=== PATIENT | male | born 1965 | race Two or more races ===

== ENCOUNTER 2019-01-03 16:37 | Emergency (ER) | payer SELFPAY ==
[~2019-01-03] VITALS: Ht 193 cm; Wt 115.7 kg
[2019-01-03] MEDS ORDERED: METFORMIN HCL1000 M1 ORAL (16:49)
--- NOTE | 2019-01-03 16:50 | Emergency Room Report ---
History of Present Illness General Chief Complaint: Chest Pain Source: Patient Present Illness HPI 53-year-old male history of 80 pack years 2 packs/day for 40 years, presents with acute shortness of breath x3 days, chest tightness no aggravating or alleviating factors symptoms are constant, no fever no chills, he endorses a dry cough. Patient presents for evaluation. Allergies: Coded Allergies: No Known Allergies (Unverified , 01/03/19) Patient History Past Medical History: see triage record Social History: Reports: smoking Reviewed Nursing Documentation: PMH: Agreed; PSxH: Agreed Nursing Documentation-PMH Past Medical History: No History, Except For Hx Diabetes: Yes Review of Systems All Other Systems: negative except mentioned in HPI Physical Exam Vital Signs Date Time Temp Pulse Resp B/P (MAP) Pulse Ox O2 Delivery O2 Flow Rate FiO2 01/03/19 16:43 98.1 92 14 105/78 (87) 97 Room Air Sp02 EP Interpretation: reviewed, normal General Appearance: well appearing, no apparent distress, alert Head: normocephalic, atraumatic Eyes: bilateral eye PERRL, bilateral eye EOMI ENT: uvula midline, moist mucus membranes Neck: supple, thyroid normal, supple/symm/no masses Respiratory: accessory muscle use, wheezing - bilateral wheezing moderate Cardiovascular #1: normal peripheral pulses, regular rate, rhythm, no edema, no gallop, no murmur Gastrointestinal: non tender, soft, no guarding, no rebound Musculoskeletal: normal inspection Neurologic: alert, oriented x3 Psychiatric: mood/affect normal Skin: no rash, warm/dry Medical Decision Making Diagnostic Impression: Primary Impression: COPD exacerbation ER Course 53-year-old male presents with acute shortness of breath chest pain has been constant x3 days, on the differential includes ACS pneumonia COPD exacerbation Chest x-ray negative shows large lung volumes EKG negative, troponin negative, patient had wheezing on exam reevaluation at 6: 10 PM, wheezing significantly improved after albuterol and Decadron Disposition home with return precautions, patient already received outpatient steroids, will provide patient with albuterol pump Counseled patient to follow-up with PCP and obtain a stress test as well as pulmonary function testing Laboratory Tests Test 01/03/19 16:55 White Blood Count 13.4 K/UL (4.8-10.8) H Red Blood Count 5.15 M/UL (4.70-6.10) Hemoglobin 16.2 G/DL (14.2-18.0) Hematocrit 44.4 % (42.0-52.0) Mean Corpuscular Volume 86 FL (80-99) Mean Corpuscular Hemoglobin 31.4 PG (27.0-31.0) H Mean Corpuscular Hemoglobin Concent 36.4 G/DL (32.0-36.0) H Red Cell Distribution Width 10.9 % (11.6-14.8) L Platelet Count 212 K/UL (150-450) Mean Platelet Volume 8.5 FL (6.5-10.1) Neutrophils (%) (Auto) 56.0 % (45.0-75.0) Lymphocytes (%) (Auto) 36.3 % (20.0-45.0) Monocytes (%) (Auto) 5.0 % (1.0-10.0) Eosinophils (%) (Auto) 1.3 % (0.0-3.0) Basophils (%) (Auto) 1.3 % (0.0-2.0) Prothrombin Time 9.2 SEC (9.30-11.50) L Prothrombin Time INR 0.9 (0.9-1.1) PTT 26 SEC (23-33) Sodium Level 139 MMOL/L (136-145) Potassium Level 3.7 MMOL/L (3.5-5.1) Chloride Level 103 MMOL/L (98-107) Carbon Dioxide Level 25 MMOL/L (21-32) Anion Gap 11 mmol/L (5-15) Blood Urea Nitrogen 11 mg/dL (7-18) Creatinine 0.8 MG/DL (0.55-1.30) Estimate Glomerular Filtration Rate > 60 mL/min (>60) Glucose Level 223 MG/DL (74-106) H Calcium Level 9.4 MG/DL (8.5-10.1) Total Bilirubin 0.5 MG/DL (0.2-1.0) Aspartate Amino Transferase (AST) 28 U/L (15-37) Alanine Aminotransferase (ALT) 63 U/L (12-78) Alkaline Phosphatase 106 U/L (46-116) Total Creatine Kinase 42 U/L (26-308) Creatine Kinase MB 0.8 NG/ML (0.0-3.6) Creatine Kinase MB Relative Index 1.9 Troponin I 0.000 ng/mL (0.000-0.056) Pro-B-Type Natriuretic Peptide 55 pg/mL (0-125) Total Protein 7.1 G/DL (6.4-8.2) Albumin 3.9 G/DL (3.4-5.0) Globulin 3.2 g/dL Albumin/Globulin Ratio 1.2 (1.0-2.7) Lipase 382 U/L (73-393) EKG Diagnostic Results EKG Time: 16:40 EP Interpretation: NSR, rate 82, QTc 422, no acute ST elevations, normal axis Rate: normal Rhythm: NSR ST Segments: no acute changes Rhythm Strip Diag. Results Rhythm Strip Time: 17:00 EP Interpretation: yes Rate: 81 Rhythm: NSR, no PVC's, no ectopy Chest X-Ray Diagnostic Results Chest X-Ray Diagnostic Results : Chest X-Ray Ordered: Yes # of Views/Limited/Complete: 1 View Indication: Shortness of Breath EP Interpretation: Yes Interpretation: no consolidation, no effusion, no pneumothorax, no acute cardiopulmonary disease Impression: No acute disease Electronically Signed by: Guanakito Hilario MD Last Vital Signs Date Time Temp Pulse Resp B/P (MAP) Pulse Ox O2 Delivery O2 Flow Rate FiO2 01/03/19 16:43 98.1 92 14 105/78 (87) 97 Room Air Disposition: HOME, SELF-CARE Condition: Stable Scripts Albuterol Sulfate* (ALBUTEROL SULFATE MDI*) 8.5 Gm Hfa.aer.ad 2 PUFF INH Q4H PRN for Shortness of Breath, #1 EA 0 Refills Prov: Guanakito Hilario MD 01/03/19 Referrals: [facility] Patient Instructions: Chronic Obstructive Pulmonary Disease Exacerbation Additional Instructions: The patient was provided with discharge instructions, notified to follow-up with a primary care doctor and or specialist in the next 24-48 hours, and to return to the ED if they have worsening of their symptoms. Please note that this report is being documented using [employer] technology. This can lead to erroneous entry secondary to incorrect interpretation by the dictating instrument. PLEASE OBTAIN A STRESS TEST AN OUTPATIENT AND PULMONARY FUNCTION TESTING. Guanakito Hilario MD Jan 03, 2019 16:50
[2019-01-03] MEDS ORDERED: Ipratropium 0.02% Inh Soln 2.5ml UD HHN SCH ×2 (17:00)
[2019-01-03] MEDS ORDERED: Dexamethasone 4mg/ml vial IVP ONE (17:00)
[2019-01-03] MEDS ORDERED: Albuterol ud Inhalation HHN SCH ×2 (17:00)
--- NOTE | 2019-01-03 17:10 | NUR ---
ED Nurse Note:pt. came with c/o chest pain for 3 days also had some chest congestion, VSS, EKG done, placed on cardiac technologist, blood sent to labs
[2019-01-03 17:16] VITALS: BP 116/58
[2019-01-03 17:22] LABS: BASOPHILS % (AUTO) 1.3 % (0.0-2.0); EOSINOPHILS % (AUTO) 1.3 % (0.0-3.0); HEMATOCRIT 44.4 % (42.0-52.0); HEMOGLOBIN 16.2 G/DL (14.2-18.0); LYMPHOCYTES % (AUTO) 36.3 % (20.0-45.0); MEAN CORPUSCULAR VOLUME 86 FL (80-99); PLATELET COUNT 212 K/UL (150-450); RED BLOOD COUNT 5.15 M/UL (4.70-6.10); RED CELL DISTRIBUTION WIDTH 10.9 % (11.6-14.8); WHITE BLOOD COUNT 13.4 K/UL (4.8-10.8)
[2019-01-03 17:30] LABS: INR 0.9 (0.9-1.1)
[2019-01-03 17:53] LABS: ALANINE AMINOTRANSFERASE 63 U/L (12-78); ALBUMIN 3.9 G/DL (3.4-5.0); ALBUMIN/GLOBULIN RATIO 1.2 (1.0-2.7); ALKALINE PHOSPHATASE 106 U/L (46-116); ANION GAP 11 mmol/L (5-15); ASPARTATE AMINO TRANSFERASE 28 U/L (15-37); BILIRUBIN,TOTAL 0.5 MG/DL (0.2-1.0); BLOOD UREA NITROGEN 11 mg/dL (7-18); CALCIUM 9.4 MG/DL (8.5-10.1); CARBON DIOXIDE 25 MMOL/L (21-32); CHLORIDE 103 MMOL/L (98-107); CKMB 0.8 NG/ML (0.0-3.6); CREATINE KINASE 42 U/L (26-308); CREATININE 0.8 MG/DL (0.55-1.30); POTASSIUM 3.7 MMOL/L (3.5-5.1); SODIUM 139 MMOL/L (136-145)
--- NOTE | 2019-01-03 18:04 | Diagnostic Imaging Report ---
EXAM: XR Chest, 1 View CLINICAL HISTORY: CP TECHNIQUE: Frontal view of the chest. COMPARISON: none FINDINGS: Lungs: Unremarkable. No consolidation. Pleural space: Unremarkable. No pneumothorax. Heart: Unremarkable. No cardiomegaly. Mediastinum: Unremarkable. Bones/joints: Unremarkable. IMPRESSION: Normal chest x-ray.
[2019-01-03] MEDS ORDERED: ALBUTEROL SULF8.5 GM INH (18:12)
--- NOTE | 2019-01-03 18:15 | NUR ---
ER DISCHARGE NOTE: Patient is cleared to be discharged per ERMD, pt is aox4, on room air, with stable vital signs. pt was given dc and prescription instructions, pt was able to verbalize understanding, pt id band and iv site removed without complications. pt is able to ambulate with steady gait. pt took all belongings.
[2019-01-03 18:18] VITALS: BP 116/58
--- NOTE | 2019-01-06 11:35 | Cardiology Report ---
APPROVED REPORT EKG Measurement Heart [id number] Normal sinus rhythm Normal ECG
== END 2019-01-03 18:18 | disposition home or self-care (01) ==
LOC: EMR 17:11
DX: J44.1 Chronic obstructive pulmonary disease with (acute) exacerbation (principal); F17.210 Nicotine dependence, cigarettes, uncomplicated
CPT/HCPCS: 36415; 71045; 80053; 82550; 82553; 83690; 83880; 84484; 85025; 85610; 85730; 93005; 94640; 94664; 96361; 96374; 99284; J1100

== ENCOUNTER 2019-01-18 20:05 | Emergency (ER) | payer BC ==
[~2019-01-18] VITALS: Ht 193 cm; Wt 115.7 kg
[~2019-01-18 20:05] MED LIST: ALBUTEROL SULF8.5 GM INH; METFORMIN HCL1000 M1 ORAL
--- NOTE | 2019-01-18 20:13 | NUR ---
ED Nurse Note: pt walked into ED C/O elevated blood sugar. pt reports his last blood sugar is 250. pt is alert x4. VSS
[2019-01-18 20:14] VITALS: BP 130/77
--- NOTE | 2019-01-18 20:33 | NUR ---
ED Nurse Note: pt refuse to get blood drawn, IV therapy, imaging. pt states that he will follow up with his PMD tomorrow instead. ERMD aware.
--- NOTE | 2019-01-18 20:38 | Emergency Room Report ---
History of Present Illness General Chief Complaint: Generalized Weakness Source: Patient Present Illness HPI 53-year-old male history of diabetes, COPD presents with blurry vision 4 hours ago that had since resolved, patient just wanted his blood sugar checked, patient states that his blood sugar at home was 350 he denies any aggravating or alleviating factors, he does endorse some [id number] in his feet bilaterally no known aggravating relieving factors, patient denies any fevers chills chest pain shortness of breath, patient does not want any acute interventions right now he states he just wants his blood sugar checked Allergies: Coded Allergies: No Known Allergies (Unverified , 01/03/19) Patient History Past Medical History: see triage record Reviewed Nursing Documentation: PMH: Agreed; PSxH: Agreed Nursing Documentation-PMH Past Medical History: No History, Except For Hx Diabetes: Yes Review of Systems All Other Systems: negative except mentioned in HPI Physical Exam Vital Signs Date Time Temp Pulse Resp B/P (MAP) Pulse Ox O2 Delivery O2 Flow Rate FiO2 01/18/19 20:10 97.9 81 18 123/77 (92) 98 Room Air Sp02 EP Interpretation: reviewed, normal General Appearance: well appearing, no apparent distress, alert Head: normocephalic, atraumatic Eyes: bilateral eye PERRL, bilateral eye EOMI ENT: uvula midline, moist mucus membranes Neck: supple, thyroid normal, supple/symm/no masses Respiratory: lungs clear, no respiratory distress, no retraction, no accessory muscle use Cardiovascular #1: normal peripheral pulses, regular rate, rhythm, no edema, no gallop, no murmur Gastrointestinal: non tender, soft, no guarding, no rebound Musculoskeletal: normal inspection Neurologic: alert, oriented x3 Psychiatric: mood/affect normal Skin: no rash, warm/dry Medical Decision Making Diagnostic Impression: Primary Impression: Episode of generalized weakness Additional Impressions: Hyperglycemia Diabetic neuropathy Qualified Codes: E11.49 - Type 2 diabetes mellitus with other diabetic neurological complication Diabetic retinopathy Qualified Codes: E11.319 - Type 2 diabetes mellitus with unspecified diabetic retinopathy without macular edema ER Course 53-year-old male presents with history of diabetes, average blood sugars high 100s low 200s Patient is most likely suffering from retinopathy, neuropathy Spoke with patient gave diabetes counseling, patient does not want any labs drawn no x-rays, counseled patient joint decision-making made was made with patient to follow-up with a primary care doctor tomorrow we will obtain an A1c, will give him diabetes counseling will modify his outpatient regimen Disposition home with return precautions Last Vital Signs Date Time Temp Pulse Resp B/P (MAP) Pulse Ox O2 Delivery O2 Flow Rate FiO2 01/18/19 20:10 97.9 81 18 123/77 (92) 98 Room Air Disposition: HOME, SELF-CARE Condition: Stable Referrals: [facility]. [facility] Patient Instructions: Diabetes Mellitus and Food, Diabetes and Exercise, Diabetes and Foot Care, Diabetic Neuropathy, Diabetic Retinopathy, Weakness Additional Instructions: The patient was provided with discharge instructions, notified to follow-up with a primary care doctor and or specialist in the next 24-48 hours, and to return to the ED if they have worsening of their symptoms. Please note that this report is being documented using [employer] technology. This can lead to erroneous entry secondary to incorrect interpretation by the dictating instrument. PLEASE HAVE YOUR A1C CHECKED PLEASE CONSIDER DIET AND EXERCISE MODIFICATION Guanakito Hilario MD Jan 18, 2019 20:38
[2019-01-18 20:43] VITALS: BP 145/86
--- NOTE | 2019-01-18 20:44 | NUR ---
ER DISCHARGE NOTE: Patient is cleared to be discharged per ERMD, pt is aox4, on room air, with stable vital signs. pt was given dc instructions, pt was able to verbalize understanding, pt id band removed without complications. pt is able to ambulate with steady gait. pt took all belongings.
== END 2019-01-18 20:43 | disposition home or self-care (01) ==
LOC: EMR 20:30
DX: R53.1 Weakness (principal); E11.65 Type 2 diabetes mellitus with hyperglycemia; E11.49 Type 2 diabetes mellitus with other diabetic neurological complication; E11.319 Type 2 diabetes mellitus with unspecified diabetic retinopathy without macular edema; J44.9 Chronic obstructive pulmonary disease, unspecified
CPT/HCPCS: 99281